=== PATIENT | male | born 1955 | race Native Hawaiian/Other Pacific Islander ===

== ENCOUNTER 2017-09-11 07:22 | Outpatient (CLI) | payer OTHER | END 2017-09-11 21:14 | disposition home or self-care (01) | LOC: LABW 07:22 | DX: L50.8 Other urticaria (principal) | CPT/HCPCS: 36415; 81000; 86060; 86352 ==

== ENCOUNTER 2018-02-07 13:33 | Outpatient (CLI) | payer OTHER | END 2018-02-07 21:49 | disposition home or self-care (01) | LOC: RAD 13:33 | DX: R61 Generalized hyperhidrosis (principal) ==

== ENCOUNTER 2018-09-22 07:48 | Outpatient (CLI) | payer OTHER ==
[2018-09-22 10:31] LABS: PLATELET COUNT 327 K/uL (142-355)
[2018-09-22 10:38] LABS: POTASSIUM 3.8 mmol/L (3.6-5.2)
== END 2018-09-22 20:09 | disposition home or self-care (01) ==
LOC: LABW 07:48
PROVIDERS: Allergy & Immunology
DX: L50.8 Other urticaria (principal)
CPT/HCPCS: 36415; 80048; 81000; 85027

== ENCOUNTER 2018-12-16 08:06 | Outpatient (CLI) | payer OTHER ==
[2018-12-16 08:42] LABS: PLATELET COUNT 378 K/uL (142-355)
== END 2018-12-16 22:47 | disposition home or self-care (01) ==
LOC: LABW 08:06
PROVIDERS: Allergy & Immunology
DX: L50.8 Other urticaria (principal)
CPT/HCPCS: 36415; 80048; 81000; 85027

== ENCOUNTER 2019-12-26 09:51 | Outpatient (CLI) | payer OTHER | END 2019-12-26 20:05 | disposition home or self-care (01) | LOC: RAD 09:51 | DX: L50.8 Other urticaria (principal); R05 Cough ==

== ENCOUNTER 2020-11-28 10:54 | Outpatient (CLI) | payer OTHER | END 2020-11-28 21:24 | disposition home or self-care (01) | LOC: INF 10:54 | PROVIDERS: ATTEND Internal Medicine Endocrinology, Diabetes & Metabolism | DX: Z23 Encounter for immunization (principal) | CPT/HCPCS: 96372 ==

== ENCOUNTER 2020-12-26 11:19 | Outpatient (CLI) | payer OTHER | END 2020-12-26 19:52 | disposition home or self-care (01) | LOC: INF 11:19 | PROVIDERS: ATTEND Internal Medicine Endocrinology, Diabetes & Metabolism | DX: Z23 Encounter for immunization (principal) | CPT/HCPCS: 96372 ==

== ENCOUNTER 2021-10-15 10:46 | Outpatient (CLI) | payer OTHER | END 2021-10-15 20:23 | disposition home or self-care (01) | LOC: RAD 10:46 | PROVIDERS: ATTEND Orthopaedic Surgery | DX: M25.561 Pain in right knee (principal) ==

== ENCOUNTER 2021-12-01 15:08 | Outpatient (CLI) | payer OTHER | END 2021-12-01 20:29 | disposition home or self-care (01) | LOC: RAD 15:08 | PROVIDERS: ATTEND Nurse Practitioner Family | DX: R06.2 Wheezing (principal) ==

== ENCOUNTER 2022-02-17 16:03 | Outpatient (CLI) | payer OTHER | END 2022-02-17 19:18 | disposition home or self-care (01) | LOC: RAD 16:03 | PROVIDERS: ATTEND Orthopaedic Surgery | DX: M25.561 Pain in right knee (principal) ==